=== PATIENT | male | born 1955 | race Caucasian/White ===

== ENCOUNTER 2019-08-15 16:12 | Emergency (ER) | payer SELFPAY ==
[~2019-08-15] VITALS: Ht 175.3 cm; Wt 90.9 kg
[2019-08-15 16:50] LABS: BASO # 0.1 x10^3/uL (0.0-0.2); BASO % 1 % (0-3); EOS % 0 % (0-3); HEMOGLOBIN 14.5 g/dL (13.0-17.5); LYMPH # 2.2 x10^3/uL (1.0-4.8); LYMPH % 24 % (24-48); MEAN CORPUSCULAR HEMOGLOBIN 34 pg (25-35); MEAN CORPUSCULAR HGB CONC 34 g/dL (31-37); MEAN CORPUSCULAR VOLUME 97 fL (79-100); MONO % 11 % (0-9); NEUT # 5.7 x10^3/uL (1.8-7.7); NEUT % 64 % (31-73); PLATELET COUNT 178 x10^3/uL (140-400); RED BLOOD COUNT 4.33 x10^6/uL (4.30-5.70); RED CELL DISTRIBUTION WIDTH 13.7 % (11.5-14.5)
--- NOTE | 2019-08-15 17:11 | RAD ---
EXAM: CT HEAD WITHOUT CONTRAST. HISTORY: Altered mental status. TECHNIQUE: Computed tomography of the head was performed without intravenous contrast. One or more of the following individualized dose reduction techniques were utilized for this examination: 1. Automated exposure control. 2. Adjustment of the mA and/or kV according to patient size. 3. Use of iterative reconstruction technique. COMPARISON: None. FINDINGS: There is no intracranial hemorrhage. Sullivan-white differentiation is preserved. The ventricles are normal in size and position for patient age. There is a small mucus retention cyst in the right ethmoid air cells posteriorly. The orbits are unremarkable. The temporal bones are unremarkable. The calvarium reveals no suspicious lesions. IMPRESSION: 1. No acute intracranial findings. Electronically signed by: Thaddeus Regalado MD (08/15/2019 5:08 PM) [id number]
--- NOTE | 2019-08-15 17:21 | RAD ---
PORTABLE CHEST 1V History: Weakness. COMPARISON: None FINDINGS: The cardiomediastinal silhouette appears within normal limits. The aorta is mildly tortuous/ectatic. No evidence of pneumothorax. No evidence of pleural effusion. No consolidated infiltrate is seen. Old appearing right clavicle fracture deformity. IMPRESSION: No evidence of consolidating infiltrate. Electronically signed by: Arvin Rasmussen MD (08/15/2019 5:18 PM) [id number]
--- NOTE | 2019-08-15 17:21 | RAD ---
EXAM: CT ABDOMEN/PELVIS WITH AND WITHOUT CONTRAST. HISTORY: Left leg pain. TECHNIQUE: Computed tomography of the abdomen and pelvis was performed before and after the intravenous administration of Isovue-370. One or more of the following individualized dose reduction techniques were utilized for this examination: 1. Automated exposure control. 2. Adjustment of the mA and/or kV according to patient size. 3. Use of iterative reconstruction technique. COMPARISON: None. FINDINGS: Lung windows through the visualized portions of the bases reveal mild atelectasis. Bone windows reveal no suspicious lesions. There are changes of internal fixation of a left proximal femoral fracture. A large irregular mass arising from the left renal lower pole is consistent with renal cell carcinoma. It measures 10.8 x 8.2 x 7.7 cm. It extends to Gerota's fascia but not clearly beyond it. The left renal vein is expanded consistent with renal vein invasion. It does not appear to reach the inferior vena cava by noncontrast CT. There are no enlarged para-aortic lymph nodes. The right kidney appears at least mildly atrophic. There are no renal or ureteral calculi. There is moderate diffuse bladder wall thickening. A small left inguinal hernia contains a short segment of the sigmoid colon. The appendix is not inflamed. There is no small bowel obstruction. Hepatic surface nodularity indicates cirrhotic change. No focal hepatic lesions or appreciable without contrast. The gallbladder, pancreas, adrenal glands and spleen are unremarkable. There is likely stenosis at the origin of the celiac axis with poststenotic dilatation to 1.6 cm. IMPRESSION: 1. A large left renal mass is consistent with renal cell carcinoma. Left renal vein invasion is likely present. Staging with renal protocol CT of the abdomen/pelvis is recommended on a nonemergent basis. 2. Hepatic surface nodularity indicates cirrhotic change. 3. 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 4. Small left inguinal hernia containing a segment of the sigmoid colon. 5. Diffuse bladder wall thickening indicates chronic outlet obstruction or inflammation. Electronically signed by: Thaddeus Regalado MD (08/15/2019 5:18 PM) [id number]
[2019-08-15 17:32] VITALS: BP 152/99
[2019-08-15 17:39] LABS: INFLUENZA A PATIENT NEGATIVE (NEGATIVE); INFLUENZA B PATIENT NEGATIVE (NEGATIVE)
[2019-08-15 17:41] LABS: CALCIUM 9.2 mg/dL (8.5-10.1); CREATININE 1.1 mg/dL (0.7-1.3); GFR 67.8; POTASSIUM 3.7 mmol/L (3.5-5.1)
[2019-08-15 17:45] LABS: PROTHROMBIN TIME PATIENT 14.2 SEC (11.7-14.0)
[2019-08-15 17:46] LABS: ALBUMIN 3.7 g/dL (3.4-5.0); ALBUMIN/GLOBULIN RATIO 0.9 (1.0-1.7); MAGNESIUM 1.7 mg/dL (1.8-2.4); TOTAL BILIRUBIN 0.5 mg/dL (0.2-1.0)
[2019-08-15 18:10] LABS: BILIRUBIN,URINE NEGATIVE (NEG); CLARITY,URINE CLEAR; COLOR,URINE YELLOW; NITRITE,URINE NEGATIVE (NEG); PH,URINE 5.5; PROTEIN,URINE NEGATIVE (NEG-TRACE); UROBILINOGEN,URINE 0.2 mg/dL (0.2 mg/dL)
[2019-08-15 18:15] LABS: BARBITURATES NEG (NEG); BENZODIAZEPINES NEG (NEG); CANNABINOIDS NEG (NEG); COCAINE NEG (NEG); METHADONE POS (NEG); OPIATES POS (NEG); PHENCYCLIDINE NEG (NEG)
[2019-08-15 18:19] LABS: BACTERIA,URINE 0 /HPF (0-FEW); RBC,URINE 0 /HPF (0-2); SQUAMOUS EPITHELIAL CELL,UR OCC /LPF
[2019-08-15 18:21] LABS: AMPHETAMINE/METHAMPHETAMINE NEG (NEG)
[2019-08-15] MEDS ORDERED: CYCL10TA2 PO (18:22)
[2019-08-15] MEDS ORDERED: METH4TAB2 PO (18:22)
--- NOTE | 2019-08-15 18:23 | PHYS DOC ---
Past Medical History Past Medical History: Hypothyroid, Other Additional Past Medical Histor: takes methadone daily Past Surgical History: Other Additional Past Surgical Histo: left femur fracture Smoking Status: Former Smoker Alcohol Use: Rarely Social History Narrative: pt states he is a "former drug user" Adult General Chief Complaint Chief Complaint: BACK PAIN - NO INJURY HPI HPI Patient is a 64 year old male with a history of hypothyroidism, who presents to the ED today complaining of 10 out of 10 low back pain with spasms, patient reports this are chronic symptoms but he feels they got worse today. He states he feels weaker than normal. He states he was seen at [facility] a week ago and was told he has kidney cancer and he is still being worked up. He states he does not want to go to anymore. Patient denies any injury. Denies any pain radiating to bilateral lower extremities. Denies any loss of bowel or chronic bladder function. Review of Systems Review of Systems Constitutional: Denies fever or chills [] Eyes: Denies change in visual acuity, redness, or eye pain [] HENT: Denies nasal congestion or sore throat [] Respiratory: Denies cough or shortness of breath [] Cardiovascular: No additional information not addressed in HPI [] GI: Denies abdominal pain, nausea, vomiting, bloody stools or diarrhea [] : Reports diagnosis of kidney cancer. Denies dysuria or hematuria [] Musculoskeletal: Reports low back pain. Integument: Denies rash or skin lesions [] Neurologic: Denies headache, focal weakness or sensory changes [] All other systems were reviewed and found to be within normal limits, except as documented in this note. Allergies Allergies Allergies Coded Allergies Type Severity Reaction Last Updated Verified No Known Drug Allergies 08/15/19 No Physical Exam Physical Exam Constitutional: Well developed, well nourished, no acute distress, non-toxic appearance. [] HENT: Normocephalic, atraumatic, bilateral external ears normal, oropharynx moist, no oral exudates, nose normal. [] Eyes: PERRLA, EOMI, conjunctiva normal, no discharge. [] Neck: Normal range of motion, no tenderness, supple, no stridor. [] Cardiovascular:Heart rate regular rhythm, no murmur [] Lungs & Thorax: Bilateral breath sounds clear to auscultation [] Abdomen: Bowel sounds normal, soft, no tenderness, no masses, no pulsatile masses. [] Skin: Warm, dry, no erythema, no rash. [] Back: No tenderness, no CVA tenderness. [] Extremities: No tenderness, no cyanosis, no clubbing, ROM intact, no edema. [] Neurologic: Alert and oriented X 3, normal motor function, normal sensory function, no focal deficits noted. [] Psychologic: Affect normal, judgement normal, mood normal. [] Current Patient Data Vital Signs Vital Signs Date Time Temp Pulse Resp B/P (MAP) Pulse Ox O2 Delivery O2 Flow Rate FiO2 08/15/19 17:32 66 152/99 (116) 96 Nasal Cannula 3.0 08/15/19 16:25 98.3 16 98.3 Lab Values Laboratory Tests Test 08/15/19 16:35 08/15/19 17:09 08/15/19 17:15 White Blood Count 9.0 x10^3/uL (4.0-11.0) Red Blood Count 4.33 x10^6/uL (4.30-5.70) Hemoglobin 14.5 g/dL (13.0-17.5) Hematocrit 42.0 % (39.0-53.0) Mean Corpuscular Volume 97 fL (79-100) Mean Corpuscular Hemoglobin 34 pg (25-35) Mean Corpuscular Hemoglobin Concent 34 g/dL (31-37) Red Cell Distribution Width 13.7 % (11.5-14.5) Platelet Count 178 x10^3/uL (140-400) Neutrophils (%) (Auto) 64 % (31-73) Lymphocytes (%) (Auto) 24 % (24-48) Monocytes (%) (Auto) 11 % (0-9) H Eosinophils (%) (Auto) 0 % (0-3) Basophils (%) (Auto) 1 % (0-3) Neutrophils # (Auto) 5.7 x10^3/uL (1.8-7.7) Lymphocytes # (Auto) 2.2 x10^3/uL (1.0-4.8) Monocytes # (Auto) 1.0 x10^3/uL (0.0-1.1) Eosinophils # (Auto) 0.0 x10^3/uL (0.0-0.7) Basophils # (Auto) 0.1 x10^3/uL (0.0-0.2) Influenza Type A Antigen Negative (NEGATIVE) Influenza Type B Antigen Negative (NEGATIVE) Prothrombin Time 14.2 SEC (11.7-14.0) H Prothrombin Time INR 1.1 (0.8-1.1) Activated Partial Thromboplast Time 31 SEC (24-38) Sodium Level 139 mmol/L (136-145) Potassium Level 3.7 mmol/L (3.5-5.1) Chloride Level 101 mmol/L (98-107) Carbon Dioxide Level 25 mmol/L (21-32) Anion Gap 13 (6-14) Blood Urea Nitrogen 15 mg/dL (8-26) Creatinine 1.1 mg/dL (0.7-1.3) Estimated GFR (Cockcroft-Gault) 67.8 BUN/Creatinine Ratio 14 (6-20) Glucose Level 109 mg/dL (70-99) H Calcium Level 9.2 mg/dL (8.5-10.1) Magnesium Level 1.7 mg/dL (1.8-2.4) L Total Bilirubin 0.5 mg/dL (0.2-1.0) Aspartate Amino Transferase (AST) 23 U/L (15-37) Alanine Aminotransferase (ALT) 20 U/L (16-63) Alkaline Phosphatase 80 U/L (46-116) Creatine Kinase 107 U/L (39-308) Creatine Kinase MB (Mass) 1.8 ng/mL (0.0-3.6) Creatine Kinase MB Relative Index 1.7 % (0-4) Troponin I Quantitative < 0.017 ng/mL (0.000-0.055) TL-Nis-A-Type Natriuretic Peptide 475 pg/mL (0-124) H Total Protein 8.0 g/dL (6.4-8.2) Albumin 3.7 g/dL (3.4-5.0) Albumin/Globulin Ratio 0.9 (1.0-1.7) L Lipase 65 U/L (73-393) L Thyroid Stimulating Hormone (TSH) 43.936 uIU/mL (0.358-3.74) H Ethyl Alcohol Level < 10 mg/dL (0-10) Laboratory Tests 08/15/19 16:35 Laboratory Tests 08/15/19 17:15 EKG EKG [address] Ramírez sinus rhythm HR 61 no STEMI[] Radiology/Procedures Radiology/Procedures []PROCEDURE: CT ABDOMEN PELVIS WO CONTRAST EXAM: CT ABDOMEN/PELVIS WITH AND WITHOUT CONTRAST. HISTORY: Left leg pain. TECHNIQUE: Computed tomography of the abdomen and pelvis was performed before and after the intravenous administration of Isovue-370. One or more of the following individualized dose reduction techniques were utilized for this examination: 1. Automated exposure control. 2. Adjustment of the mA and/or kV according to patient size. 3. Use of iterative reconstruction technique. COMPARISON: None. FINDINGS: Lung windows through the visualized portions of the bases reveal mild atelectasis. Bone windows reveal no suspicious lesions. There are changes of internal fixation of a left proximal femoral fracture. A large irregular mass arising from the left renal lower pole is consistent with renal cell carcinoma. It measures 10.8 x 8.2 x 7.7 cm. It extends to Gerota's fascia but not clearly beyond it. The left renal vein is expanded consistent with renal vein invasion. It does not appear to reach the inferior vena cava by noncontrast CT. There are no enlarged para-aortic lymph nodes. The right kidney appears at least mildly atrophic. There are no renal or ureteral calculi. There is moderate diffuse bladder wall thickening. A small left inguinal hernia contains a short segment of the sigmoid colon. The appendix is not inflamed. There is no small bowel obstruction. Hepatic surface nodularity indicates cirrhotic change. No focal hepatic lesions or appreciable without contrast. The gallbladder, pancreas, adrenal glands and spleen are unremarkable. There is likely stenosis at the origin of the celiac axis with poststenotic dilatation to 1.6 cm. IMPRESSION: 1. A large left renal mass is consistent with renal cell carcinoma. Left renal vein invasion is likely present. Staging with renal protocol CT of the abdomen/pelvis is recommended on a nonemergent basis. 2. Hepatic surface nodularity indicates cirrhotic change. 3. 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 4. Small left inguinal hernia containing a segment of the sigmoid colon. 5. Diffuse bladder wall thickening indicates chronic outlet obstruction or inflammation. Electronically signed by: Thaddeus Regalado MD (08/15/2019 5:18 PM) [id number] DICTATED and SIGNED BY: EARL REGALADO MD DATE: 08/15/19 1717 PROCEDURE: PORTABLE CHEST 1V PORTABLE CHEST 1V History: Weakness. COMPARISON: None FINDINGS: The cardiomediastinal silhouette appears within normal limits. The aorta is mildly tortuous/ectatic. No evidence of pneumothorax. No evidence of pleural effusion. No consolidated infiltrate is seen. Old appearing right clavicle fracture deformity. IMPRESSION: No evidence of consolidating infiltrate. Electronically signed by: Arvin Rasmussen MD (08/15/2019 5:18 PM) [id number] DICTATED and SIGNED BY: ARVIN RASMUSSEN MD DATE: 08/15/191717 PROCEDURE: CT HEAD WO CONTRAST EXAM: CT HEAD WITHOUT CONTRAST. HISTORY: Altered mental status. TECHNIQUE: Computed tomography of the head was performed without intravenous contrast. One or more of the following individualized dose reduction techniques were utilized for this examination: 1. Automated exposure control. 2. Adjustment of the mA and/or kV according to patient size. 3. Use of iterative reconstruction technique. COMPARISON: None. FINDINGS: There is no intracranial hemorrhage. Sullivan-white differentiation is preserved. The ventricles are normal in size and position for patient age. There is a small mucus retention cyst in the right ethmoid air cells posteriorly. The orbits are unremarkable. The temporal bones are unremarkable. The calvarium reveals no suspicious lesions. IMPRESSION: 1. No acute intracranial findings. Electronically signed by: Thaddeus Regalado MD (08/15/2019 5:08 PM) [id number] DICTATED and SIGNED BY: EARL REGALADO MD DATE: 08/15/191707 Course & Med Decision Making Course & Med Decision Making Pertinent Labs and Imaging studies reviewed. (See chart for details) This is a 64-year-old male patient presenting to the ED today complaining of chronic low back pain with spasms. Patient also complaining of generalized weakness, he also states he has been diagnosed with kidney cancer. He does not have any details about his cancer. Patient's labs are negative for any acute findings, TSH 43.936, patient has known history of hypothyroidism. CT of the head is negative, chest x-ray is negative. UA is negative CT of the abdomen and pelvis was noted for left renal carcinoma. Patient is a well this. Follows up with [facility] is refusing to be seen there anymore. Encouraged h im to find another urologist considering we don't have one in this hospital. Discharged to home Dragon Disclaimer Dragon Disclaimer This electronic medical record was generated, in whole or in part, using a voice recognition dictation system. Departure Departure Impression: Primary Impression: Carcinoma of left kidney Additional Impressions: Chronic back pain Hypothyroidism Disposition: 01 HOME, SELF-CARE Condition: STABLE Referrals: ROBB FLORES MD (PCP) follow up with your doctor next week Patient Instructions: Back Pain, Adult, Renal Cell Cancer Additional Instructions: Please follow-up with your doctor next week. Also follow-up with your kidney doctor at [facility] any other facility you want. [facility] does not have a kidney doctor. Scripts Cyclobenzaprine Hcl (CYCLOBENZAPRINE HCL) 10 Mg Tablet 1 TAB PO TID, #30 TAB Prov: EMMANUELLE ALTAMIRANO [employer] HE[employer] DENTIST 08/15/19 Methylprednisolone (MEDROL) 4 Mg Tab.ds.pk 1 PKG PO UD, #1 PKG Prov: EMMANUELLE ALTAMIRANO [employer] HE[employer] DENTIST 08/15/19 Problem Qualifiers Additional Impressions: Chronic back pain Back pain location: low back pain Back pain laterality: bilateral Sciatica presence: without sciatica Qualified Codes: M54.5 - Low back pain; G89.29 - Other chronic pain Hypothyroidism Hypothyroidism type: unspecified Qualified Codes: E03.9 - Hypothyroidism, unspecified EMMANUELLE ALTAMIRANO PUBLIC HEALTH DENTIST Aug 15, 2019 18:23
--- NOTE | 2019-08-15 21:31 | EKG ---
[facility] [address] [place] [address] Test Date: 2019-08-15 Test Time: 16:46:55 Pat Name: MAXIMUS LAMAS Department: Room: Gender: M [employer]: : 1955 Requested By: EMMANUELLE ALTAMIRANO Order Number: [id number] Reading MD: Measurements Intervals [place] Rate: 61 P: 49 LA: 184 QRS: 42 QRSD: 94 T: 56 QT: 502 QTc: 507 Interpretive Statements SINUS RHYTHM QRS(T) CONTOUR ABNORMALITY CONSIDER ANTEROSEPTAL MYOCARDIAL DAMAGE PROLONGED QT POSSIBLY ABNORMAL ECG RI6.01 No previous ECG available for comparison
== END 2019-08-15 18:41 | disposition home or self-care (01) ==
LOC: ER 16:12
DX: D09.19 Carcinoma in situ of other urinary organs (principal); G89.29 Other chronic pain; M54.5 Low back pain; E03.9 Hypothyroidism, unspecified; Z87.891 Personal history of nicotine dependence; Z98.890 Other specified postprocedural states
CPT/HCPCS: 36415; 70450; 71045; 74176; 80053; 80307; 81001; 82553; 83690; 83735; 83880; 84443; 84484; 85025; 85610; 85730; 87804; 93005; 99285; G0480